=== PATIENT | male | born 1950 | race Caucasian/White ===

== ENCOUNTER 2016-12-31 08:58 | Emergency (ER) | payer MEDICARE, OTHER ==
[~2016-12-31] VITALS: Ht 162.6 cm; Wt 78.0 kg
[~2016-12-31 08:58] MED LIST: DEBROX BOTH EARS; IBUP-1542 PO; NO MEDICATIONS; TRAM50TA2 PO
[2016-12-31 09:01] VITALS: Ht 162.6 cm; Wt 78.0 kg
[2016-12-31] MEDS ORDERED: KETOROLAC 30 MG INJ IM STA (09:15)
--- NOTE | 2016-12-31 09:19 | ERD ---
ER Documentation Chief Complaint Date/Time DATE: 12/31/16 TIME: 09:16 Chief Complaint NECK PAIN SINCE FRIDAY HPI Patient is a 66-year-old male who states he has neck pain secondary to sleeping on it wrong. He has 5 out of 10 throbbing pain that is worse when he moves his head or neck. He denies any trauma. He denies any fever. He denies any nausea or vomiting. He has been taking Advil which helps to relieve the pain temporarily and he is also been applying icy hot. ROS All systems reviewed and are negative except as per history of present illness. Medications Home Meds Active Scripts Tramadol HCl (Tramadol HCl) 50 Mg Tablet, 50 MG PO Q4 Y for PAIN, #20 TAB Prov:AMELIE LOUIE PA-C 10/18/15 Ibuprofen* (Motrin*) 600 Mg Tab, 600 MG PO Q6 Y for PAIN, #30 TAB Prov:AMELIE LOUIE PA-C 10/18/15 Carbamide Peroxide* (Debrox*) 6.5% -15 Ml Drops, 10 DROP BOTH EARS BID for 3 Days, EA Prov:LINDA RAYMOND 06/18/15 Reported Medications [No Medications] No Conflict Check 02/26/10 Allergies Allergies: Coded Allergies: No Known Allergies (Verified Allergy, Mild, 02/26/10) PMhx/Soc History of Surgery: Yes (RIGHT ARM SX) Anesthesia Reaction: No Hx Neurological Disorder: No Hx Respiratory Disorders: No Hx Cardiac Disorders: No Hx Psychiatric Problems: No Hx Miscellaneous Medical Probl: No Hx Alcohol Use: No Hx Substance Use: No Hx Tobacco Use: No FmHx Family History: No diabetes Physical Exam Vitals Vital Signs Date Time Temp Pulse Resp B/P Pulse Ox O2 Delivery O2 Flow Rate FiO2 12/31/16 09:01 98.1 89 18 158/93 99 Physical Exam INITIAL VITAL SIGNS: Reviewed by me GENERAL: Awake, alert and oriented x 4, well appearing, nontoxic, speaking in full sentences. No acute distress HEAD: Atraumatic EYES: EOMI. PERRL. THROAT: No tonilar erythema or edema. No exudates. Uvula midline. No kissing tonsils. NECK: Supple. No masses. Full range of motion. No meningismus. No midline tenderness. RESPIRATORY: Clear to auscultation bilaterally. Symmetric chest wall rise. No wheezing or rales. No accessory muscle use. CV: Regular rate and rhythm. No murmurs, rubs, or gallops. ABDOMEN: Soft, non-distended. Nontender. Negative [place]. Negative McBurneys point tenderness. No CVA tenderness bilaterally. No guarding. No rebound. Procedures/MDM 66-year-old male has neck pain after sleeping on it wrong. Patient's blood pressure was elevated (>120/80) but appears stable without evidence of hypertension emergency or urgency. The patient was counseled about the risks of hypertension and urged to pursue outpatient monitoring and therapy within a week with their primary care physician. Vitals are otherwise normal. He has no midline tenderness and there is no trauma or injury, therefore no imaging ordered.he has had some relief of his symptoms with Motrin at home. He was given Toradol here in the emergency room and discharged with anti-inflammatories , pain medication and muscle relaxer. Patient counseled regarding my diagnostic impression and care plan. Prior to discharge all questions answered. Pt agrees with treatment plan and understands strict return precautions. Pt is instructed to follow up with primary care provider within 24-48 hours. Precautionary instructions provided including instructions to return to the ER if not improving or for any worsening or changing symptoms or concerns. Departure Diagnosis: Primary Impression: Cervical strain Condition: Stable SUSAN CHEN PA-C Dec 31, 2016 09:19
[2016-12-31] MEDS ORDERED: TRAM50TA2 PO (09:20)
[2016-12-31] MEDS ORDERED: IBUP-1542 PO (09:20)
[2016-12-31] MEDS ORDERED: CARI350T PO (09:20)
== END 2016-12-31 10:07 | disposition home or self-care (01) ==
LOC: FTE 08:58
DX: S16.1XXA Strain of muscle, fascia and tendon at neck level, initial encounter (principal); X58.XXXA Exposure to other specified factors, initial encounter; Y92.9 Unspecified place or not applicable
CPT/HCPCS: 96372; 99284; J1885

== ENCOUNTER 2017-10-15 04:28 | Emergency (ER) | END 2017-10-15 06:56 | disposition home or self-care (01) ==